=== PATIENT | female | born 1930 | race Caucasian/White ===

== ENCOUNTER → 2018-12-15 | Outpatient (CLI) | payer MEDICARE, BC ==
[~2018-12-15] MED LIST: BETA1TAB PO; CALC600T63 PO; CHOL10005 PO; CYAN20004 PO; HYDR-4225 PO; MAGN500C10 PO; MULT-1335 PO; SPIR25TA80 PO; THYR60TA25 PO
[2018-12-15 13:46] LABS: PLATELET COUNT, AUTOMATED 251 K/uL (150-450)
== END ==
LOC: LAB 13:22
PROVIDERS: ATTEND Family Medicine
DX: E03.9 Hypothyroidism, unspecified (principal); E83.42 Hypomagnesemia
CPT/HCPCS: 36415; 82040; 82247; 82310; 82374; 82435; 82565; 82947; 83735; 84075; 84132; 84155; 84295; 84443; 84450; 84460; 84520; 85025